=== PATIENT | male | born 1935 | race Caucasian/White ===

== ENCOUNTER 2017-08-19 11:53 | Inpatient (IN) | payer MEDICARE, OTHER ==
[~2017-08-19] VITALS: Ht 190.5 cm; Wt 115.3 kg
[2017-08-19 13:05] LABS: BASOPHILS % (AUTO) 1 % (0-1); EOSINOPHILS # (AUTO) 0.64 x10^3/uL (0-0.4); EOSINOPHILS % (AUTO) 6 % (1-7); LYMPHOCYTES # (AUTO) 1.69 x10^3/uL (1-3.4); LYMPHOCYTES % (AUTO) 15 % (22-44); MD NO; MEAN CORPUSCULAR HEMOGLOBIN 30.7 pg (27.5-34.5); MEAN CORPUSCULAR HGB CONC 32.8 g/dL (33.2-36.2); MEAN CORPUSCULAR VOLUME 93.5 fL (81-97); MEAN PLATELET VOLUME 8.3 fL (7.4-10.4); MONOCYTES # (AUTO) 1.21 x10^3/uL (0.2-0.8); MONOCYTES % (AUTO) 11 % (2-9); NEUTROPHILS # (AUTO) 7.52 x10^3/uL (1.8-6.8); NEUTROPHILS % (AUTO) 67 % (42-75); PLATELET COUNT 241 x10^3/uL (130-400); RED BLOOD COUNT 4.99 x10^6/uL (4.38-5.82); RED CELL DISTRIBUTION WIDTH 16.6 % (9.4-14.8)
[2017-08-19 13:16] LABS: ALANINE AMINOTRANSFERASE 27 U/L (12-78); ALBUMIN 3.2 g/dL (3.4-5.0); ANION GAP 6 mmol/L (5-15); CALCIUM 8.3 mg/dL (8.5-10.1); CHLORIDE 108 mmol/L (98-107)
[2017-08-19 13:21] LABS: ALKALINE PHOSPHATASE 58 U/L (45-117); BILIRUBIN,TOTAL 0.7 mg/dL (0.2-1.0); TOTAL PROTEIN 7.5 g/dL (6.4-8.2); TROPONIN I 0.028 ng/mL (0.000-0.045)
[2017-08-19] MEDS ORDERED: AZITHROMYCIN 500 MG in SODIUM CHLORIDE 0.9% 250 ML IVPB ONE (13:30)
[2017-08-19] MEDS ORDERED: ALBUTEROL/IPRATROPIUM 2.5MG/0.5MG, 3 ML ONE (13:46)
[2017-08-19] MEDS ORDERED: ALBUTEROL/IPRATROPIUM 2.5MG/0.5MG, 3 ML NPPB ONE (14:00)
[2017-08-19] MEDS ORDERED: FURO-93 PO (14:14)
[2017-08-19] MEDS ORDERED: TAMS-11 PO (14:14)
[2017-08-19] MEDS ORDERED: ZOLP10TA5 PO (14:14)
[2017-08-19] MEDS ORDERED: BIMA2.5D OP (14:14)
[2017-08-19] MEDS ORDERED: BUDE10.2 INH (14:14)
[2017-08-19] MEDS ORDERED: GABA300C10 PO (14:14)
[2017-08-19] MEDS ORDERED: OMNIPAQUE 350 MG/ML, 100ML BOTTLE ONE (14:39)
[2017-08-19] MEDS ORDERED: CEFTRIAXONE PMX 1GM/50ML 50 ML ONE (14:49)
[2017-08-19] MEDS: CEFTRIAXONE PMX 1GM/50ML 50 ML IVPB ONE ×2 (14:50→14:59)
[2017-08-19] MEDS: CEFTRIAXONE PMX 1GM/50ML 50 ML IV SCH (15:00)
[2017-08-19] MEDS ORDERED: DOCUSATE 100 MG CAPSULE PO PRN (15:30)
[2017-08-19] MEDS ORDERED: POLYETHYLENE GLYCOL 17 GM PACKET PO PRN (15:30)
[2017-08-19] MEDS ORDERED: BISACODYL 10 MG SUPP PR PRN (15:30)
[2017-08-19] MEDS ORDERED: ACETAMINOPHEN 325 MG TABLET PO PRN (15:30)
[2017-08-19] MEDS ORDERED: ONDANSETRON ODT 4 MG PO PRN (15:30)
[2017-08-19] MEDS ORDERED: FUROSEMIDE 20 MG/2 ML ONE (16:17)
[2017-08-19] MEDS ORDERED: ENOXAPARIN 40 MG/0.4 ML ONE (16:17)
[2017-08-19] MEDS: ENOXAPARIN 40 MG/0.4 ML SQ SCH (16:22)
[2017-08-19] MEDS: FUROSEMIDE 20 MG/2 ML IV SCH (16:22)
[2017-08-19 16:55] VITALS: BP 115/75
[2017-08-19] MEDS: GABAPENTIN 300 MG CAPSULE PO SCH ×2 (17:21→20:32)
[2017-08-19] MEDS: GUAIFENESIN 200 MG TABLET PO SCH ×2 (17:21→20:33)
[2017-08-19] MEDS: DOXYCYCLINE 100 MG in DEXTROSE 5% 250 ML IV SCH (18:30)
[2017-08-19 20:00] VITALS: BP 104/70
[2017-08-19] MEDS: ALBUTEROL/IPRATROPIUM 2.5MG/0.5MG, 3 ML NPPB SCH (20:00)
[2017-08-19] MEDS: ZOLPIDEM 10MG TABLET PO SCH (20:33)
[2017-08-19] MEDS: Bimatoprost (Lumigan) 1 DROP OP SCH ×2 (20:35→21:00)
[2017-08-19] MEDS: SODIUM CHLORIDE NASAL SPRAY 45ML BOTTLE NAS SCH (21:13)
[2017-08-19] MEDS: FLUTICASONE NASAL SPRAY 16GM NAS SCH (21:13)
[2017-08-20 02:30] VITALS: BP 122/76
[2017-08-20 05:32] LABS: BASOPHILS # (AUTO) 0.02 x10^3/uL (0-0.1); BASOPHILS % (AUTO) 0 % (0-1); EOSINOPHILS # (AUTO) 0.01 x10^3/uL (0-0.4); EOSINOPHILS % (AUTO) 0 % (1-7); LYMPHOCYTES # (AUTO) 1.22 x10^3/uL (1-3.4); LYMPHOCYTES % (AUTO) 13 % (22-44); MD NO; MEAN CORPUSCULAR HEMOGLOBIN 30.5 pg (27.5-34.5); MEAN CORPUSCULAR HGB CONC 32.2 g/dL (33.2-36.2); MEAN CORPUSCULAR VOLUME 94.7 fL (81-97); MEAN PLATELET VOLUME 8.7 fL (7.4-10.4); MONOCYTES # (AUTO) 0.67 x10^3/uL (0.2-0.8); MONOCYTES % (AUTO) 7 % (2-9); NEUTROPHILS # (AUTO) 7.21 x10^3/uL (1.8-6.8); NEUTROPHILS % (AUTO) 79 % (42-75); PLATELET COUNT 232 x10^3/uL (130-400); RED BLOOD COUNT 4.65 x10^6/uL (4.38-5.82); RED CELL DISTRIBUTION WIDTH 16.3 % (9.4-14.8)
[2017-08-20 05:46] LABS: CHLORIDE 106 mmol/L (98-107)
[2017-08-20 05:51] LABS: ANION GAP 6 mmol/L (5-15); CREATININE 0.81 mg/dL (0.7-1.3)
[2017-08-20] MEDS: ALBUTEROL/IPRATROPIUM 2.5MG/0.5MG, 3 ML NPPB SCH ×4 (06:09→18:26)
[2017-08-20] MEDS: DOXYCYCLINE 100 MG in DEXTROSE 5% 250 ML IV SCH ×2 (06:17→18:02)
[2017-08-20] MEDS: GUAIFENESIN 200 MG TABLET PO SCH ×4 (06:17→20:55)
[2017-08-20 06:40] VITALS: BP 110/65
[2017-08-20] MEDS: FLUTICASONE NASAL SPRAY 16GM NAS SCH ×2 (08:19→20:55)
[2017-08-20] MEDS: SODIUM CHLORIDE NASAL SPRAY 45ML BOTTLE NAS SCH ×2 (08:19→20:55)
[2017-08-20] MEDS: FUROSEMIDE 20 MG/2 ML IV SCH (08:19)
[2017-08-20] MEDS: TAMSULOSIN 0.4 MG CAP.ER.24H PO SCH (08:20)
[2017-08-20] MEDS: GABAPENTIN 300 MG CAPSULE PO SCH ×3 (08:20→20:55)
[2017-08-20 13:39] VITALS: BP 105/60
[2017-08-20 14:59] VITALS: BP 144/88
[2017-08-20] MEDS: CEFTRIAXONE PMX 1GM/50ML 50 ML IV SCH (15:20)
[2017-08-20] MEDS ORDERED: BRIM5DRO3 LEFTEYE (15:38)
[2017-08-20] MEDS: ENOXAPARIN 40 MG/0.4 ML SQ SCH (15:52)
[2017-08-20 16:00] LABS: THYROID STIMULATING HORMONE 0.203 mIU/L (0.358-3.740)
[2017-08-20 16:02] LABS: MICROSCOPIC AUTO
[2017-08-20 16:10] LABS: CULTURE INDICATED? YES
[2017-08-20 20:00] VITALS: BP 104/66
[2017-08-20] MEDS: ZOLPIDEM 10MG TABLET PO SCH (20:55)
[2017-08-20] MEDS: Bimatoprost (Lumigan) 1 DROP OP SCH (20:56)
[2017-08-21 02:00] VITALS: BP_SYST 104; BP_SYST 108; BP_DIAS 65; BP_DIAS 66
[2017-08-21 06:08] LABS: BASOPHILS % (AUTO) 0 % (0-1); EOSINOPHILS % (AUTO) 0 % (1-7); LYMPHOCYTES % (AUTO) 8 % (22-44); MD NO; MEAN CORPUSCULAR HEMOGLOBIN 30.8 pg (27.5-34.5); MEAN CORPUSCULAR HGB CONC 32.4 g/dL (33.2-36.2); MEAN CORPUSCULAR VOLUME 95.2 fL (81-97); MEAN PLATELET VOLUME 8.8 fL (7.4-10.4); MONOCYTES # (AUTO) 0.59 x10^3/uL (0.2-0.8); MONOCYTES % (AUTO) 5 % (2-9); NEUTROPHILS # (AUTO) 10.37 x10^3/uL (1.8-6.8); NEUTROPHILS % (AUTO) 87 % (42-75); PLATELET COUNT 236 x10^3/uL (130-400); RED CELL DISTRIBUTION WIDTH 16.2 % (9.4-14.8)
[2017-08-21] MEDS: GUAIFENESIN 200 MG TABLET PO SCH ×4 (06:14→20:18)
[2017-08-21] MEDS: DOXYCYCLINE 100 MG in DEXTROSE 5% 250 ML IV SCH ×2 (06:14→18:41)
[2017-08-21 06:30] VITALS: BP 110/63
[2017-08-21] MEDS: ALBUTEROL/IPRATROPIUM 2.5MG/0.5MG, 3 ML NPPB SCH ×4 (06:44→18:34)
[2017-08-21 06:45] LABS: CALCIUM 8.9 mg/dL (8.5-10.1); CREATININE 0.66 mg/dL (0.7-1.3); THYROID STIMULATING HORMONE 0.162 mIU/L (0.358-3.740)
[2017-08-21 06:50] LABS: CHLORIDE 104 mmol/L (98-107)
[2017-08-21 06:51] LABS: ANION GAP 7 mmol/L (5-15)
[2017-08-21] MEDS: FUROSEMIDE 20 MG/2 ML IV SCH (08:19)
[2017-08-21] MEDS: CYANOCOBALAMIN 1,000 MCG TABLET PO SCH (08:20)
[2017-08-21] MEDS: TAMSULOSIN 0.4 MG CAP.ER.24H PO SCH (08:20)
[2017-08-21] MEDS: SODIUM CHLORIDE NASAL SPRAY 45ML BOTTLE NAS SCH ×2 (08:20→20:17)
[2017-08-21] MEDS: FLUTICASONE NASAL SPRAY 16GM NAS SCH ×2 (08:20→20:17)
[2017-08-21] MEDS: GABAPENTIN 300 MG CAPSULE PO SCH ×3 (08:20→20:18)
[2017-08-21] MEDS: CETIRIZINE 10 MG TABLET PO SCH (08:21)
[2017-08-21 13:55] VITALS: BP 118/72
[2017-08-21] MEDS: CEFTRIAXONE PMX 1GM/50ML 50 ML IV SCH (15:34)
[2017-08-21] MEDS: ENOXAPARIN 40 MG/0.4 ML SQ SCH (15:34)
[2017-08-21 20:11] VITALS: BP 118/66
[2017-08-21] MEDS: Bimatoprost (Lumigan) 1 DROP OP SCH (20:17)
[2017-08-21] MEDS: ZOLPIDEM 10MG TABLET PO SCH (20:18)
[2017-08-22 01:10] VITALS: BP 113/73
[2017-08-22 05:23] LABS: BASOPHILS # (AUTO) 0.01 x10^3/uL (0-0.1); BASOPHILS % (AUTO) 0 % (0-1); EOSINOPHILS % (AUTO) 0 % (1-7); LYMPHOCYTES # (AUTO) 0.91 x10^3/uL (1-3.4); LYMPHOCYTES % (AUTO) 8 % (22-44); MD NO; MEAN CORPUSCULAR HEMOGLOBIN 30.7 pg (27.5-34.5); MEAN CORPUSCULAR HGB CONC 32.3 g/dL (33.2-36.2); MEAN CORPUSCULAR VOLUME 95.3 fL (81-97); MEAN PLATELET VOLUME 8.5 fL (7.4-10.4); MONOCYTES # (AUTO) 0.77 x10^3/uL (0.2-0.8); MONOCYTES % (AUTO) 7 % (2-9); NEUTROPHILS # (AUTO) 9.16 x10^3/uL (1.8-6.8); NEUTROPHILS % (AUTO) 84 % (42-75); PLATELET COUNT 245 x10^3/uL (130-400); RED BLOOD COUNT 4.61 x10^6/uL (4.38-5.82); RED CELL DISTRIBUTION WIDTH 16.3 % (9.4-14.8)
[2017-08-22 05:30] LABS: ANION GAP 7 mmol/L (5-15); CALCIUM 9.1 mg/dL (8.5-10.1); CHLORIDE 102 mmol/L (98-107)
[2017-08-22] MEDS: DOXYCYCLINE 100 MG in DEXTROSE 5% 250 ML IV SCH ×2 (06:07→18:17)
[2017-08-22] MEDS: GUAIFENESIN 200 MG TABLET PO SCH ×4 (06:07→20:16)
[2017-08-22] MEDS: ALBUTEROL/IPRATROPIUM 2.5MG/0.5MG, 3 ML NPPB SCH ×4 (06:18→20:45)
[2017-08-22 06:50] VITALS: BP 121/72
[2017-08-22] MEDS: SODIUM CHLORIDE NASAL SPRAY 45ML BOTTLE NAS SCH ×2 (10:00→20:16)
[2017-08-22] MEDS: FLUTICASONE NASAL SPRAY 16GM NAS SCH ×2 (10:02→20:16)
[2017-08-22] MEDS: FUROSEMIDE 20 MG TABLET PO SCH (10:04)
[2017-08-22] MEDS: TAMSULOSIN 0.4 MG CAP.ER.24H PO SCH (10:05)
[2017-08-22] MEDS: CETIRIZINE 10 MG TABLET PO SCH (10:06)
[2017-08-22] MEDS: GABAPENTIN 300 MG CAPSULE PO SCH ×3 (10:07→20:16)
[2017-08-22] MEDS: CYANOCOBALAMIN 1,000 MCG TABLET PO SCH (10:09)
[2017-08-22] MEDS: CEFTRIAXONE PMX 1GM/50ML 50 ML IV SCH (15:47)
[2017-08-22] MEDS: ENOXAPARIN 40 MG/0.4 ML SQ SCH (15:47)
[2017-08-22 15:48] VITALS: BP 117/73
[2017-08-22 18:33] VITALS: BP 111/69
[2017-08-22] MEDS: ZOLPIDEM 10MG TABLET PO SCH (20:16)
[2017-08-22] MEDS: Bimatoprost (Lumigan) 1 DROP OP SCH (20:16)
[2017-08-23 01:19] VITALS: BP 120/76
[2017-08-23] MEDS: GUAIFENESIN 200 MG TABLET PO SCH ×4 (06:00→21:33)
[2017-08-23] MEDS: DOXYCYCLINE 100 MG in DEXTROSE 5% 250 ML IV SCH ×2 (06:30→17:33)
[2017-08-23] MEDS: ALBUTEROL/IPRATROPIUM 2.5MG/0.5MG, 3 ML NPPB SCH ×4 (07:00→20:50)
[2017-08-23 08:30] VITALS: BP 124/65
[2017-08-23] MEDS: CYANOCOBALAMIN 1,000 MCG TABLET PO SCH (09:02)
[2017-08-23] MEDS: FUROSEMIDE 20 MG TABLET PO SCH (09:02)
[2017-08-23] MEDS: FLUTICASONE NASAL SPRAY 16GM NAS SCH ×2 (09:02→21:33)
[2017-08-23] MEDS: TAMSULOSIN 0.4 MG CAP.ER.24H PO SCH (09:02)
[2017-08-23] MEDS: GABAPENTIN 300 MG CAPSULE PO SCH ×3 (09:02→21:33)
[2017-08-23] MEDS: SODIUM CHLORIDE NASAL SPRAY 45ML BOTTLE NAS SCH ×2 (09:02→21:32)
[2017-08-23] MEDS: CETIRIZINE 10 MG TABLET PO SCH (09:02)
[2017-08-23 14:28] VITALS: BP 132/68
[2017-08-23] MEDS: CEFTRIAXONE PMX 1GM/50ML 50 ML IV SCH (14:30)
[2017-08-23] MEDS: ENOXAPARIN 40 MG/0.4 ML SQ SCH (15:39)
[2017-08-23] MEDS ORDERED: POTASSIUM PHOSPHATE 44 MEQ in SODIUM CHLORIDE 0.9% 500 ML IV ONE (18:30)
[2017-08-23] MEDS ORDERED: MAGNESIUM SULFATE 6 GM in SODIUM CHLORIDE 0.9% 150 ML IV ONE (18:30)
[2017-08-23 19:06] VITALS: BP 105/64
[2017-08-23] MEDS: Bimatoprost (Lumigan) 1 DROP OP SCH (21:00)
[2017-08-23] MEDS: ZOLPIDEM 10MG TABLET PO SCH (21:33)
[2017-08-24 01:43] VITALS: BP 103/69
[2017-08-24] MEDS: GUAIFENESIN 200 MG TABLET PO SCH ×4 (06:11→20:48)
[2017-08-24] MEDS: DOXYCYCLINE 100 MG in DEXTROSE 5% 250 ML IV SCH ×2 (06:12→18:29)
[2017-08-24 06:45] VITALS: BP 110/66
[2017-08-24] MEDS: ALBUTEROL/IPRATROPIUM 2.5MG/0.5MG, 3 ML NPPB SCH ×4 (07:20→20:20)
[2017-08-24] MEDS: GABAPENTIN 300 MG CAPSULE PO SCH ×3 (08:08→20:48)
[2017-08-24] MEDS: TAMSULOSIN 0.4 MG CAP.ER.24H PO SCH (08:08)
[2017-08-24] MEDS: CYANOCOBALAMIN 1,000 MCG TABLET PO SCH (08:08)
[2017-08-24] MEDS: FUROSEMIDE 20 MG TABLET PO SCH (08:08)
[2017-08-24] MEDS: CETIRIZINE 10 MG TABLET PO SCH (08:08)
[2017-08-24] MEDS: FLUTICASONE NASAL SPRAY 16GM NAS SCH ×2 (08:10→20:48)
[2017-08-24] MEDS: SODIUM CHLORIDE NASAL SPRAY 45ML BOTTLE NAS SCH ×2 (08:10→20:48)
[2017-08-24 12:15] VITALS: BP 104/68
[2017-08-24] MEDS: ENOXAPARIN 40 MG/0.4 ML SQ SCH (15:38)
[2017-08-24] MEDS: CEFTRIAXONE PMX 1GM/50ML 50 ML IV SCH (15:38)
[2017-08-24 20:00] VITALS: BP 119/67
[2017-08-24] MEDS: Bimatoprost (Lumigan) 1 DROP OP SCH ×2 (20:48→20:55)
[2017-08-24] MEDS: ZOLPIDEM 10MG TABLET PO SCH ×2 (20:48→22:51)
[2017-08-25 02:00] VITALS: BP 117/72
[2017-08-25] MEDS: DOXYCYCLINE 100 MG in DEXTROSE 5% 250 ML IV SCH ×2 (06:22→17:57)
[2017-08-25] MEDS: GUAIFENESIN 200 MG TABLET PO SCH ×4 (06:22→21:35)
[2017-08-25] MEDS: ALBUTEROL/IPRATROPIUM 2.5MG/0.5MG, 3 ML NPPB SCH ×4 (06:55→20:00)
[2017-08-25 07:52] VITALS: BP 108/66
[2017-08-25] MEDS: SODIUM CHLORIDE NASAL SPRAY 45ML BOTTLE NAS SCH ×2 (08:07→21:35)
[2017-08-25] MEDS: FUROSEMIDE 20 MG TABLET PO SCH (08:08)
[2017-08-25] MEDS: TAMSULOSIN 0.4 MG CAP.ER.24H PO SCH (08:08)
[2017-08-25] MEDS: CYANOCOBALAMIN 1,000 MCG TABLET PO SCH (08:08)
[2017-08-25] MEDS: CETIRIZINE 10 MG TABLET PO SCH (08:08)
[2017-08-25] MEDS: FLUTICASONE NASAL SPRAY 16GM NAS SCH ×2 (08:08→21:35)
[2017-08-25] MEDS: GABAPENTIN 300 MG CAPSULE PO SCH ×3 (08:08→21:35)
[2017-08-25] MEDS: FLUCONAZOLE 200 MG/100 ML 100 ML IV SCH (09:19)
[2017-08-25 12:21] VITALS: BP 101/72
[2017-08-25] MEDS: CEFTRIAXONE PMX 1GM/50ML 50 ML IV SCH (15:43)
[2017-08-25] MEDS: ENOXAPARIN 40 MG/0.4 ML SQ SCH (15:44)
[2017-08-25 20:00] VITALS: BP 114/69
[2017-08-25] MEDS: Bimatoprost (Lumigan) 1 DROP OP SCH (21:00)
[2017-08-25] MEDS: ZOLPIDEM 10MG TABLET PO SCH (22:52)
[2017-08-26 02:00] VITALS: BP 102/57
[2017-08-26] MEDS: GUAIFENESIN 200 MG TABLET PO SCH ×2 (06:06→10:19)
[2017-08-26] MEDS: DOXYCYCLINE 100 MG in DEXTROSE 5% 250 ML IV SCH (06:06)
[2017-08-26] MEDS: ALBUTEROL/IPRATROPIUM 2.5MG/0.5MG, 3 ML NPPB SCH ×2 (07:36→10:24)
[2017-08-26] MEDS: GABAPENTIN 300 MG CAPSULE PO SCH (08:01)
[2017-08-26] MEDS: FLUCONAZOLE 200 MG/100 ML 100 ML IV SCH (08:01)
[2017-08-26] MEDS: CYANOCOBALAMIN 1,000 MCG TABLET PO SCH (08:01)
[2017-08-26] MEDS: CETIRIZINE 10 MG TABLET PO SCH (08:01)
[2017-08-26] MEDS: FLUTICASONE NASAL SPRAY 16GM NAS SCH (08:02)
[2017-08-26] MEDS: SODIUM CHLORIDE NASAL SPRAY 45ML BOTTLE NAS SCH (08:02)
[2017-08-26] MEDS: FUROSEMIDE 20 MG TABLET PO SCH (08:02)
[2017-08-26] MEDS: TAMSULOSIN 0.4 MG CAP.ER.24H PO SCH (08:02)
[2017-08-26 08:22] VITALS: BP 108/65
[2017-08-26] MEDS ORDERED: PRED10TA PO (10:35)
[2017-08-26] MEDS ORDERED: FURO20TA3 PO (10:35)
[2017-08-26] MEDS ORDERED: TIOT18CA INH (10:35)
[2017-08-26] MEDS ORDERED: CYAN10005 PO (10:35)
[2017-08-26] MEDS ORDERED: FLUC200T PO (10:35)
== END 2017-08-26 13:20 | disposition home or self-care (01) | DRG 291 ==
LOC: ED 15:17 → 4WST 16:39
PROVIDERS: ADMIT Internal Medicine; ATTEND Internal Medicine
DX: I50.33 Acute on chronic diastolic (congestive) heart failure (principal); J18.9 Pneumonia, unspecified organism; J96.00 Acute respiratory failure, unspecified whether with hypoxia or hypercapnia; G93.41 Metabolic encephalopathy; G62.9 Polyneuropathy, unspecified; J84.10 Pulmonary fibrosis, unspecified; J44.0 Chronic obstructive pulmonary disease with (acute) lower respiratory infection; E44.1 Mild protein-calorie malnutrition; J44.1 Chronic obstructive pulmonary disease with (acute) exacerbation; N40.0 Benign prostatic hyperplasia without lower urinary tract symptoms; H54.7 Unspecified visual loss; J30.9 Allergic rhinitis, unspecified; H40.9 Unspecified glaucoma; Z96.652 Presence of left artificial knee joint; Z87.01 Personal history of pneumonia (recurrent); Z79.899 Other long term (current) drug therapy; Z68.31 Body mass index [BMI] 31.0-31.9, adult
CPT/HCPCS: 36415; 70450; 71045; 71275; 80048; 80053; 81001; 82140; 82607; 83605; 83735; 83880; 84100; 84145; 84439; 84443; 84481; 84484; 85025; 85379; 87040; 87070; 87086; 87106; 87205; 93005; 93306; 94640; 96365; 96368; 96372; 96375; J0456; J0696; J1650; J7060; J7620; Q9967; J1450; J1940; J7050; J7512